=== PATIENT | male | born 1950 | race Caucasian/White ===

== ENCOUNTER 2017-01-26 13:59 | Inpatient (IN) | payer MEDICARE, MEDICAID ==
[~2017-01-26] VITALS: Ht 177.8 cm; Wt 91.4 kg
[2017-01-26] MEDS ORDERED: TRAZ-144 PO (14:10)
[2017-01-26] MEDS ORDERED: DIVA500T35 PO (14:10)
[2017-01-26] MEDS ORDERED: BENA10TA3 PO (14:10)
[2017-01-26] MEDS ORDERED: CHLO25 PO (14:10)
[2017-01-26] MEDS ORDERED: SITA100 PO (14:10)
[2017-01-26] MEDS ORDERED: IBUP-2070 PO (14:10)
[2017-01-26] MEDS ORDERED: HALO5 PO (14:10)
[2017-01-26] MEDS ORDERED: OMEP20 PO (14:10)
[2017-01-26] MEDS ORDERED: METF500T4 PO ×2 (14:10)
[2017-01-26 14:18] LABS: GLUCOSE,POINT OF CARE 210 MG/DL (70-110)
[2017-01-26] MEDS ORDERED: ZOLPIDEM TARTRATE 10 MG TABLET PO PRN (15:30)
[2017-01-26 15:37] LABS: BASOPHILS # (AUTO) 0.02 K/uL (0.00-0.20); BASOPHILS % (AUTO) 0.5 % (0.0-2.0); EOSINOPHILS # (AUTO) 0.12 K/uL (0.00-0.70); EOSINOPHILS % (AUTO) 2.55 % (1.0-6.0); HEMATOCRIT 40.3 % (41-53); HEMOGLOBIN 13.9 g/dL (13.5-17.5); LYMPHOCYTES # (AUTO) 1.3 K/uL (1.0-4.8); LYMPHOCYTES % (AUTO) 25.9 % (22.0-44.0); MEAN CORPUSCULAR HEMOGLOBIN 30.8 pg (26.0-34.0); MEAN CORPUSCULAR HGB CONC 34.4 G/dL (31.0-37.0); MEAN CORPUSCULAR VOLUME 90 fL (80-100); MONOCYTES # (AUTO) 0.6 K/uL (0.1-1.0); MONOCYTES % (AUTO) 11.9 % (2.0-9.0); NEUTROPHILS # (AUTO) 2.9 K/uL (1.8-7.7); NEUTROPHILS % (AUTO) 59.2 % (40.0-70.0); PLATELET COUNT (AUTO) 271 K/uL (150-450); WHITE BLOOD COUNT (AUTO) 4.8 K/uL (4.5-11.0)
[2017-01-26 15:57] LABS: ANION GAP 8 mmol/L (8-16); CALCIUM, TOTAL 9.7 mg/dL (8.8-10.5); CARBON DIOXIDE 25 mmol/L (22-29); CHLORIDE 103 mmol/L (98-107); CREATININE 0.94 mg/dL (0.60-1.30); GLOMERULAR FILTR. RATE CALC > 60 mL/min (>60); POTASSIUM 4.5 mmol/L (3.5-5.1); SODIUM SERUM 136 mmol/L (136-145); UREA NITROGEN, BLOOD 17 mg/dL (7-18)
[2017-01-26 16:01] LABS: ALANINE AMINOTRANSFERASE 49 U/L (12-78); ALBUMIN 3.4 g/dL (3.4-5.0); ASPARTATE AMINOTRANSFERASE 21 U/L (15-37); BILIRUBIN,TOTAL 0.3 mg/dL (0.1-1.0); TOTAL PROTEIN, SERUM 7.4 g/dL (6.4-8.2)
[2017-01-26 18:20] VITALS: BP 121/71
[2017-01-26] MEDS: LORazepam 2 MG TABLET PO PRN (18:50)
[2017-01-26] MEDS: HALOPERIDOL 5 MG TABLET PO PRN (18:56)
[2017-01-26] MEDS ORDERED: GLUCAGON,HUMAN RECOMBINANT 1 MG VIAL IM PRN (20:15)
[2017-01-27 00:11] LABS: GLUCOSE,POINT OF CARE 178 MG/DL (70-110)
[2017-01-27 03:45] VITALS: BP 124/94
[2017-01-27] MEDS: LORazepam 2 MG TABLET PO PRN (04:16)
[2017-01-27] MEDS: IBUPROFEN 400 MG TABLET PO PRN ×2 (04:17→16:31)
[2017-01-27] MEDS: MetFORMIN HCL 500 MG TABLET PO SCH ×2 (05:34→06:50)
[2017-01-27 06:03] LABS: GLUCOSE,POINT OF CARE 157 MG/DL (70-110)
[2017-01-27] MEDS: INSULIN ASPART 100 UNITS/ML SQ PRN ×2 (06:24→16:35)
[2017-01-27 08:11] VITALS: BP 114/79
[2017-01-27] MEDS: MULTIVITAMINS, THERAPEUTIC TABLET PO SCH (08:28)
[2017-01-27] MEDS ORDERED: BENAZEPRIL HCL 10 MG TABLET PO SCH (09:00)
[2017-01-27] MEDS ORDERED: OMEPRAZOLE 20 MG CAPSULE PO SCH (09:00)
[2017-01-27] MEDS ORDERED: SitaGLIPtin PHOSPHATE 100 MG TABLET PO SCH (09:00)
[2017-01-27] MEDS: HALOPERIDOL 5 MG TABLET PO PRN (09:26)
[2017-01-27] MEDS: CHOLECALCIFEROL (VIT D3) 1,000 UNITS TABLET PO SCH (14:33)
[2017-01-27 16:24] VITALS: BP 123/86
[2017-01-27 17:02] LABS: GLUCOSE,POINT OF CARE 151 MG/DL (70-110)
[2017-01-27] MEDS: TAMSULOSIN HCL 0.4 MG CAPSULE PO SCH (20:30)
[2017-01-27] MEDS ORDERED: ACETAMINOPHEN 325 MG TABLET PO PRN (20:30)
[2017-01-27] MEDS: BENZTROPINE MESYLATE 1 MG TABLET PO SCH (20:30)
[2017-01-27] MEDS: DIVALPROEX SODIUM 500 MG ER TABLET PO SCH (20:30)
[2017-01-27] MEDS ORDERED: HALOPERIDOL 10 MG TABLET PO SCH (21:00)
[2017-01-27] MEDS ORDERED: TraZODone HCL 100 MG TABLET PO SCH (21:00)
[2017-01-28 05:59] VITALS: BP 113/81
[2017-01-28] MEDS: IBUPROFEN 400 MG TABLET PO PRN ×2 (06:15→16:17)
[2017-01-28 06:18] LABS: GLUCOSE,POINT OF CARE 156 MG/DL (70-110)
[2017-01-28] MEDS: MetFORMIN HCL 500 MG TABLET PO SCH ×2 (07:01→16:39)
[2017-01-28] MEDS: INSULIN ASPART 100 UNITS/ML SQ PRN ×2 (07:12→16:39)
[2017-01-28 08:00] VITALS: BP 121/81
[2017-01-28] MEDS: SitaGLIPtin PHOSPHATE 100 MG TABLET PO SCH (08:17)
[2017-01-28] MEDS: BENAZEPRIL HCL 10 MG TABLET PO SCH (08:17)
[2017-01-28] MEDS: BENZTROPINE MESYLATE 1 MG TABLET PO SCH ×2 (08:17→20:46)
[2017-01-28] MEDS: MULTIVITAMINS, THERAPEUTIC TABLET PO SCH (08:17)
[2017-01-28] MEDS: CHOLECALCIFEROL (VIT D3) 1,000 UNITS TABLET PO SCH (08:17)
[2017-01-28] MEDS: OMEPRAZOLE 20 MG CAPSULE PO SCH (08:17)
[2017-01-28] MEDS: LORazepam 2 MG TABLET PO PRN (08:19)
[2017-01-28] MEDS ORDERED: HALOPERIDOL 5 MG TABLET PO SCH (09:00)
[2017-01-28 16:20] VITALS: BP 112/68
[2017-01-28 16:23] LABS: GLUCOSE,POINT OF CARE 196 MG/DL (70-110)
[2017-01-28] MEDS: TAMSULOSIN HCL 0.4 MG CAPSULE PO SCH (20:45)
[2017-01-28] MEDS: ChlorproMAZINE HCL 25 MG TABLET PO SCH (20:45)
[2017-01-28] MEDS: DIVALPROEX SODIUM 500 MG ER TABLET PO SCH (20:45)
[2017-01-28] MEDS: TraZODone HCL 100 MG TABLET PO SCH (20:46)
[2017-01-28] MEDS: HALOPERIDOL 10 MG TABLET PO SCH (20:46)
[2017-01-29 05:56] VITALS: BP 115/85
[2017-01-29] MEDS: IBUPROFEN 400 MG TABLET PO PRN (06:24)
[2017-01-29 06:40] LABS: GLUCOSE,POINT OF CARE 157 MG/DL (70-110)
[2017-01-29] MEDS: MetFORMIN HCL 500 MG TABLET PO SCH ×2 (06:41→16:47)
[2017-01-29] MEDS: INSULIN ASPART 100 UNITS/ML SQ PRN ×2 (07:09→16:50)
[2017-01-29] MEDS: BENAZEPRIL HCL 10 MG TABLET PO SCH (08:31)
[2017-01-29] MEDS: CHOLECALCIFEROL (VIT D3) 1,000 UNITS TABLET PO SCH (08:31)
[2017-01-29] MEDS: SitaGLIPtin PHOSPHATE 100 MG TABLET PO SCH (08:31)
[2017-01-29] MEDS: MULTIVITAMINS, THERAPEUTIC TABLET PO SCH (08:31)
[2017-01-29] MEDS: BENZTROPINE MESYLATE 1 MG TABLET PO SCH ×2 (08:31→16:47)
[2017-01-29] MEDS: OMEPRAZOLE 20 MG CAPSULE PO SCH (08:31)
[2017-01-29] MEDS: LORazepam 2 MG TABLET PO PRN ×2 (08:51→17:43)
[2017-01-29 09:06] VITALS: BP 113/73
[2017-01-29 16:25] VITALS: BP 119/68
[2017-01-29 17:13] LABS: GLUCOSE,POINT OF CARE 171 MG/DL (70-110)
[2017-01-29] MEDS: TraZODone HCL 100 MG TABLET PO SCH (20:51)
[2017-01-29] MEDS: HALOPERIDOL 10 MG TABLET PO SCH (20:52)
[2017-01-29] MEDS: TAMSULOSIN HCL 0.4 MG CAPSULE PO SCH (20:52)
[2017-01-29] MEDS: ChlorproMAZINE HCL 25 MG TABLET PO SCH (20:52)
[2017-01-29] MEDS: DIVALPROEX SODIUM 500 MG ER TABLET PO SCH (20:52)
[2017-01-30 00:15] VITALS: BP 108/74
[2017-01-30 06:44] LABS: GLUCOSE,POINT OF CARE 110 MG/DL (70-110)
[2017-01-30] MEDS: MetFORMIN HCL 500 MG TABLET PO SCH ×2 (07:12→16:29)
[2017-01-30] MEDS: BENAZEPRIL HCL 10 MG TABLET PO SCH (08:07)
[2017-01-30] MEDS: OMEPRAZOLE 20 MG CAPSULE PO SCH (08:07)
[2017-01-30] MEDS: MULTIVITAMINS, THERAPEUTIC TABLET PO SCH (08:07)
[2017-01-30] MEDS: BENZTROPINE MESYLATE 1 MG TABLET PO SCH ×2 (08:07→16:28)
[2017-01-30] MEDS: CHOLECALCIFEROL (VIT D3) 1,000 UNITS TABLET PO SCH (08:07)
[2017-01-30] MEDS: SitaGLIPtin PHOSPHATE 100 MG TABLET PO SCH (08:07)
[2017-01-30 09:24] VITALS: BP 122/76
[2017-01-30] MEDS ORDERED: DOCUSATE SODIUM 100 MG CAPSULE PO SCH (09:45)
[2017-01-30] MEDS ORDERED: MAGNESIUM HYDROXIDE SUSPENSION 30 ML UDCUP PO PRN (09:45)
[2017-01-30] MEDS ORDERED: DOCUSATE SODIUM 100 MG CAPSULE PO PRN (10:00)
[2017-01-30] MEDS: ClonazePAM 0.5 MG TABLET PO PRN ×2 (13:15→22:45)
[2017-01-30 16:26] VITALS: BP 114/73
[2017-01-30 16:38] LABS: GLUCOSE,POINT OF CARE 167 MG/DL (70-110)
[2017-01-30] MEDS: INSULIN ASPART 100 UNITS/ML SQ PRN (17:49)
[2017-01-30] MEDS: TraZODone HCL 100 MG TABLET PO SCH (21:26)
[2017-01-30] MEDS: TAMSULOSIN HCL 0.4 MG CAPSULE PO SCH (21:27)
[2017-01-30] MEDS: HALOPERIDOL 10 MG TABLET PO SCH (21:27)
[2017-01-30] MEDS: ChlorproMAZINE HCL 25 MG TABLET PO SCH (21:28)
[2017-01-30] MEDS: DIVALPROEX SODIUM 500 MG ER TABLET PO SCH (21:31)
[2017-01-31 04:01] VITALS: BP 137/83
[2017-01-31] MEDS: MetFORMIN HCL 500 MG TABLET PO SCH ×2 (06:43→16:46)
[2017-01-31] MEDS: BENZTROPINE MESYLATE 1 MG TABLET PO SCH ×2 (06:43→16:46)
[2017-01-31 06:48] LABS: GLUCOSE COMMENT 1 Received Meds; GLUCOSE,POINT OF CARE 131 MG/DL (70-110)
[2017-01-31] MEDS ORDERED: BENZTROPINE MESYLATE 1 MG TABLET PO SCH (07:00)
[2017-01-31 08:51] VITALS: BP 114/73
[2017-01-31] MEDS: OMEPRAZOLE 20 MG CAPSULE PO SCH (09:50)
[2017-01-31] MEDS: MULTIVITAMINS, THERAPEUTIC TABLET PO SCH (09:50)
[2017-01-31] MEDS: SitaGLIPtin PHOSPHATE 100 MG TABLET PO SCH (09:50)
[2017-01-31] MEDS: CHOLECALCIFEROL (VIT D3) 1,000 UNITS TABLET PO SCH (09:50)
[2017-01-31] MEDS: BENAZEPRIL HCL 10 MG TABLET PO SCH (09:50)
[2017-01-31] MEDS ORDERED: ClonazePAM 0.5 MG TABLET PO PRN (10:30)
[2017-01-31 16:01] VITALS: BP 108/68
[2017-01-31 16:27] LABS: GLUCOSE,POINT OF CARE 116 MG/DL (70-110)
[2017-01-31] MEDS ORDERED: MAGNESIUM CITRATE 300 ML ORAL SOLUTION PO PRN (17:30)
[2017-01-31] MEDS: HALOPERIDOL 10 MG TABLET PO SCH (20:38)
[2017-01-31] MEDS: DIVALPROEX SODIUM 500 MG ER TABLET PO SCH (20:38)
[2017-01-31] MEDS: TraZODone HCL 100 MG TABLET PO SCH (20:38)
[2017-01-31] MEDS: ChlorproMAZINE HCL 25 MG TABLET PO SCH (20:38)
[2017-01-31] MEDS: TAMSULOSIN HCL 0.4 MG CAPSULE PO SCH (21:35)
[2017-02-01 01:40] VITALS: BP 116/72
[2017-02-01] MEDS: MetFORMIN HCL 500 MG TABLET PO SCH (06:14)
[2017-02-01] MEDS: BENZTROPINE MESYLATE 1 MG TABLET PO SCH (06:14)
[2017-02-01] MEDS: INSULIN ASPART 100 UNITS/ML SQ PRN (06:33)
[2017-02-01 07:03] LABS: GLUCOSE,POINT OF CARE 145 MG/DL (70-110)
[2017-02-01 08:25] VITALS: BP 110/75
[2017-02-01] MEDS: CHOLECALCIFEROL (VIT D3) 1,000 UNITS TABLET PO SCH (08:27)
[2017-02-01] MEDS: OMEPRAZOLE 20 MG CAPSULE PO SCH (08:27)
[2017-02-01] MEDS: SitaGLIPtin PHOSPHATE 100 MG TABLET PO SCH (08:27)
[2017-02-01] MEDS: MULTIVITAMINS, THERAPEUTIC TABLET PO SCH (08:27)
[2017-02-01] MEDS: BENAZEPRIL HCL 10 MG TABLET PO SCH (08:27)
[2017-02-01] MEDS ORDERED: BENZ1TAB10 PO (10:02)
[2017-02-01] MEDS ORDERED: TAMS0.4C32 PO (10:05)
[2017-02-01] MEDS ORDERED: VITAD1000 PO (10:10)
== END 2017-02-01 10:40 | disposition home or self-care (01) | DRG 885 ==
LOC: EMS 14:02 → B2X 16:38
DX: F25.1 Schizoaffective disorder, depressive type (principal); E11.9 Type 2 diabetes mellitus without complications; R45.851 Suicidal ideations; E78.5 Hyperlipidemia, unspecified; F41.9 Anxiety disorder, unspecified; G47.00 Insomnia, unspecified; I10 Essential (primary) hypertension; K21.9 Gastro-esophageal reflux disease without esophagitis; Z91.5 Personal history of self-harm; Z88.8 Allergy status to other drugs, medicaments and biological substances; Z88.1 Allergy status to other antibiotic agents
CPT/HCPCS: 82962; 84439; 84443; 99285; G0480

== ENCOUNTER 2023-11-27 14:13 | Inpatient (IN) | payer MEDICARE, MEDICAID ==
[~2023-11-27] VITALS: Ht 177.8 cm; Wt 91.6 kg
[~2023-11-27 14:13] MED LIST: BENA-16 PO; BENZ-247 PO; CHLO25TA69 PO; CHOL100018 PO; DIVA-112 PO; HALO5TAB2 PO; METF-1211 PO; OMEP20 PO; SITA100 PO; TAMS0.4C94 PO; TRAZ-252 PO
[2023-11-27] MEDS ORDERED: EMPA25TA3 PO (16:39)
[2023-11-27] MEDS ORDERED: ATOR40TA28 PO (16:39)
[2023-11-27] MEDS ORDERED: FINA-27 PO (16:39)
[2023-11-27] MEDS ORDERED: QUET100T PO (16:39)
[2023-11-27] MEDS ORDERED: GLIP5TAB16 PO (16:39)
[2023-11-27] MEDS ORDERED: CHOL25TA4 PO (16:56)
[2023-11-27 18:00] VITALS: BP 140/90; PULSE 75; RESP 18; TEMP 97.6; O2SAT 99
[2023-11-27] MEDS: HALOPERIDOL 5 MG TABLET PO PRN (18:55)
[2023-11-27] MEDS: ZOLPIDEM TARTRATE 10 MG TABLET PO PRN (21:38)
[2023-11-27 21:48] VITALS: BP 135/90; PULSE 82; RESP 18; TEMP 98; O2SAT 99
[2023-11-27] MEDS: LORazepam 2 MG TABLET PO PRN (22:31)
[2023-11-28 06:46] LABS: GLUCOMETER DEV NAME(LOC) BV2X.3; GLUCOSE,POINT OF CARE 218 MG/DL (70-110)
[2023-11-28] MEDS: GlipiZIDE 5 MG TABLET PO SCH (06:49)
[2023-11-28] MEDS: EMPAGLIFLOZIN 25 MG TABLET PO SCH (08:15)
[2023-11-28 08:28] VITALS: BP 141/78; PULSE 80; RESP 17; TEMP 97.4; O2SAT 96
[2023-11-28] MEDS ORDERED: PETROLATUM,WHITE 28 GM JELLY TP PRN (10:30)
[2023-11-28] MEDS ORDERED: DOCUSATE SODIUM 100 MG CAPSULE PO PRN (10:30)
[2023-11-28] MEDS ORDERED: CloNIDine HCL 0.1 MG TABLET PO PRN (10:30)
[2023-11-28] MEDS ORDERED: ONDANSETRON 4 MG TABLET PO PRN (10:30)
[2023-11-28] MEDS ORDERED: MAG HYDROX/ALUMINUM HYD/SIMETH ES 30 ML SUSPENSION UDCUP PO PRN (10:30)
[2023-11-28] MEDS ORDERED: GuaiFENesin/D-METHORPHAN [SUGAR-FREE] 200-20MG/10 ML SYRUP UDCUP PO PRN (10:30)
[2023-11-28] MEDS ORDERED: ALBUTEROL SULFATE HFA 90 MCG/PUFF 8 GM INHALER IH PRN (10:30)
[2023-11-28] MEDS ORDERED: NICOTINE 14 MG/24 HOUR PATCH TD PRN (10:30)
[2023-11-28] MEDS ORDERED: MAGNESIUM HYDROXIDE SUSPENSION 30 ML UDCUP PO PRN (10:30)
[2023-11-28] MEDS: LOPERAMIDE HCL 2 MG CAPSULE PO PRN (14:52)
[2023-11-28 15:55] LABS: GLUCOMETER DEV NAME(LOC) BV2X.3; GLUCOSE,POINT OF CARE 371 MG/DL (70-110)
[2023-11-28] MEDS: DIVALPROEX SODIUM 500 MG DR TABLET PO SCH (19:59)
[2023-11-28] MEDS: THIORIDAZINE HCL 25 MG TABLET PO SCH (19:59)
[2023-11-28 23:06] VITALS: BP 133/87; PULSE 77; RESP 17; TEMP 97.6; O2SAT 98
[2023-11-29] VITALS (10 sets, daily range): BP systolic 121–140; BP diastolic 71–98; PULSE 74–84; RESP 16–19; TEMP 96.9–98; O2SAT 95–98
[2023-11-29 08:24] LABS: HEMOGLOBIN A1C 7.9 % (3.8-5.6)
[2023-11-29 08:27] LABS: APPEARANCE,URINE CLEAR (CLEAR); BILIRUBIN,URINE NEGATIVE (NEGATIVE); COLOR,URINE COLORLESS (YELLOW); GLUCOSE, URINE (UA) >=1000 mg/dL (NEGATIVE); KETONES,URINE NEGATIVE (NEGATIVE); LEUKOCYTE ESTERASE ,URINE NEGATIVE (NEGATIVE); NITRATE,URINE NEGATIVE (NEGATIVE); OCCULT BLOOD,URINE NEGATIVE (NEGATIVE); PH,URINE 6.5 (5.0-8.0); PH,URINE DRUG SCREEN 6.5 (5.0-8.0); PROTEIN,URINE NEGATIVE (NEGATIVE); UROBILINOGEN,URINE <=1.0 mg/dL (<=1.0)
[2023-11-29 08:34] LABS: ALCOHOL, URINE DRUG SCREEN NEGATIVE (NEGATIVE); AMPHET/METH SCREEN,URINE NEGATIVE (NEGATIVE); BARBITURATE SCREEN, URINE NEGATIVE (NEGATIVE); BENZODIAZEPINES SCREEN,URINE NEGATIVE (NEGATIVE); CANNABINOID SCREEN,URINE NEGATIVE (NEGATIVE); COCAINE SCREEN,URINE NEGATIVE (NEGATIVE); METHADONE SCREEN, URINE NEGATIVE (NEGATIVE); OPIATE SCREEN,URINE NEGATIVE (NEGATIVE); PHENCYCLIDINE SCREEN,URINE NEGATIVE (NEGATIVE)
[2023-11-29 08:49] LABS: CHOL/HDL RATIO 5.5 (4.2-7.3); THYROID STIMULATING HORMONE 0.8 uIU/mL (0.36-3.74)
[2023-11-29] MEDS: TRIFLUOPERAZINE HCL 2 MG PO SCH (09:00)
[2023-11-29 09:12] LABS: RBC,URINE None Seen /HPF (0-2)
[2023-11-29 09:13] LABS: BACTERIA,URINE None Seen /HPF (None Seen); SQUAMOUS EPITHELIAL CELL,UR None Seen /LPF (None Seen); WBC,URINE None Seen /HPF (0-5)
[2023-11-29] MEDS ORDERED: GLUCAGON,HUMAN RECOMBINANT 1 MG VIAL IM PRN (11:00)
[2023-11-29] MEDS: QUEtiapine FUMARATE 25 MG TABLET PO SCH (11:13)
[2023-11-29] MEDS: INSULIN LISPRO 100 UNITS/ML SQ PRN (11:22)
[2023-11-29 11:36] LABS: GLUCOMETER DEV NAME(LOC) BV2X.3; GLUCOSE,POINT OF CARE 313 MG/DL (70-110)
[2023-11-29 17:05] LABS: GLUCOMETER DEV NAME(LOC) BV2X.3; GLUCOSE,POINT OF CARE 249 MG/DL (70-110)
[2023-11-29] MEDS: ACETAMINOPHEN 325 MG TABLET PO PRN (17:53)
[2023-11-29] MEDS: QUEtiapine FUMARATE 100 MG TABLET PO SCH (20:19)
[2023-11-29] MEDS: TAMSULOSIN HCL 0.4 MG CAPSULE PO SCH (20:19)
[2023-11-29] MEDS: ATORVASTATIN CALCIUM 40 MG TABLET PO SCH (20:19)
[2023-11-29 22:31] LABS: GLUCOMETER DEV NAME(LOC) BV2X.3; GLUCOSE,POINT OF CARE 310 MG/DL (70-110)
[2023-11-30 06:45] LABS: GLUCOMETER DEV NAME(LOC) BV2X.3; GLUCOSE,POINT OF CARE 220 MG/DL (70-110)
[2023-11-30 08:30] VITALS: BP 117/81; PULSE 93; RESP 17; TEMP 98.1; O2SAT 99
[2023-11-30] MEDS: IBUPROFEN 400 MG TABLET PO PRN (09:03)
[2023-11-30] MEDS: CHOLECALCIFEROL (VIT D3) 1,000 UNITS [25 MCG] TABLET PO SCH (09:03)
[2023-11-30 09:04] VITALS: BP 120/75; PULSE 89; RESP 18; TEMP 98.2; O2SAT 99
[2023-11-30] MEDS: BENAZEPRIL HCL 10 MG TABLET PO SCH (10:05)
[2023-11-30] MEDS: FINASTERIDE 5 MG TABLET PO SCH (10:05)
[2023-11-30] MEDS: SitaGLIPtin PHOSPHATE 100 MG TABLET PO SCH (10:05)
[2023-11-30 12:20] LABS: GLUCOMETER DEV NAME(LOC) BV2X.3; GLUCOSE,POINT OF CARE 194 MG/DL (70-110)
[2023-11-30 17:25] LABS: GLUCOMETER DEV NAME(LOC) BV2X.3; GLUCOSE,POINT OF CARE 221 MG/DL (70-110)
[2023-11-30 20:38] VITALS: BP 138/84; PULSE 76; RESP 18; TEMP 98; O2SAT 98
[2023-11-30 20:41] LABS: GLUCOMETER DEV NAME(LOC) BV2X.3; GLUCOSE,POINT OF CARE 214 MG/DL (70-110)
[2023-12-01 01:52] VITALS: BP 138/86; PULSE 76; RESP 18; TEMP 97.6; O2SAT 98
[2023-12-01] MEDS: DENTURE ADHESIVE 68 GM CREAM DT PRN (05:25)
[2023-12-01 06:26] LABS: GLUCOMETER DEV NAME(LOC) BV2X.3; GLUCOSE,POINT OF CARE 181 MG/DL (70-110)
[2023-12-01 08:07] VITALS: BP 135/85; PULSE 77; RESP 16; TEMP 96.7; O2SAT 97
[2023-12-01] MEDS ORDERED: BENA10TA76 PO (12:14)
[2023-12-01] MEDS ORDERED: QUET100T34 PO (12:14)
[2023-12-01] MEDS ORDERED: ATOR40TA71 PO (12:14)
[2023-12-01] MEDS ORDERED: EMPA25TA3 PO (12:14)
[2023-12-01] MEDS ORDERED: CHOL25TA4 PO (12:14)
[2023-12-01] MEDS ORDERED: GLIP5TAB15 PO (12:14)
[2023-12-01] MEDS ORDERED: THIO25 PO (12:14)
[2023-12-01] MEDS ORDERED: SITA100 PO (12:14)
[2023-12-01] MEDS ORDERED: DIVA-112 PO (12:14)
[2023-12-01] MEDS ORDERED: TAMS0.4C94 PO (12:14)
[2023-12-01] MEDS ORDERED: QUET25TA36 PO (12:14)
[2023-12-01 15:24] VITALS: BP 135/85; PULSE 77; RESP 16; TEMP 96.7; O2SAT 97
== END 2023-12-01 14:35 | disposition home or self-care (01) | DRG 885 ==
LOC: B2X 17:02
PROVIDERS: ADMIT Psychiatry & Neurology Psychiatry; ATTEND Psychiatry & Neurology Psychiatry
PROC: GZHZZZZ Group Psychotherapy (ICD-10-PCS; principal; 2023-11-28)
PROC: GZ56ZZZ Individual Psychotherapy, Supportive (ICD-10-PCS; 2023-11-28)
DX: F25.1 Schizoaffective disorder, depressive type (principal); R45.851 Suicidal ideations; G25.1 Drug-induced tremor; E78.5 Hyperlipidemia, unspecified; E11.40 Type 2 diabetes mellitus with diabetic neuropathy, unspecified; I10 Essential (primary) hypertension; E55.9 Vitamin D deficiency, unspecified; N40.0 Benign prostatic hyperplasia without lower urinary tract symptoms; K21.9 Gastro-esophageal reflux disease without esophagitis; Z88.8 Allergy status to other drugs, medicaments and biological substances; Z91.51 Personal history of suicidal behavior; Z79.899 Other long term (current) drug therapy
CPT/HCPCS: 80061; 80307; 81001; 82962; 83036; 84443